=== PATIENT | male | born 1985 | race African-American/Black ===

== ENCOUNTER 2020-11-20 00:25 | Emergency (ER) | payer SELFPAY ==
[~2020-11-20] VITALS: Ht 182.9 cm; Wt 70.0 kg
[2020-11-20 01:14] LABS: MEAN CORPUSCULAR HEMOGLOBIN 28.2 pg (27.5-34.5); MEAN CORPUSCULAR HGB CONC 33.5 g/dL (33.2-36.2); MEAN PLATELET VOLUME 6.9 fL (7.4-10.4); PLATELET COUNT 424 x10^3/uL (130-400); RED CELL DISTRIBUTION WIDTH 14.7 % (9.4-14.8)
[2020-11-20 01:23] LABS: ALANINE AMINOTRANSFERASE 114 U/L (12-78); ALBUMIN 3.2 g/dL (3.4-5.0); ANION GAP 8 mmol/L (5-15); CALCIUM 8.4 mg/dL (8.5-10.1); CHLORIDE 106 mmol/L (98-107); CREATININE 0.79 mg/dL (0.7-1.3)
[2020-11-20 01:25] LABS: ALKALINE PHOSPHATASE 72 U/L (45-117); BILIRUBIN,TOTAL 0.2 mg/dL (0.2-1.0); SALICYLATE LEVEL < 1.7 mg/dL (2.8-20.0); TOTAL PROTEIN 7.1 g/dL (6.4-8.2)
[2020-11-20 01:41] LABS: MD YES
[2020-11-20 01:42] LABS: BAND#(MANUAL) 0.13 x10^3/uL; BANDS%(MANUAL) 2 % (0-7); EOS#(MANUAL) 0.13 x10^3/uL (0.0-0.4); EOS% (MANUAL) 2 % (1-7); LYMPH#(MANUAL) 3.19 x10^3/uL (1-3.4); LYMPHS% (MANUAL) 49 % (22-44); MONOS#(MANUAL) 0.52 x10^3/uL (0.3-2.7); MONOS% (MANUAL) 8 % (2-9); SEG#(MANUAL) 2.54 x10^3/uL (1.8-6.8); SEGS% (MANUAL) 39 % (42-75); SMUDGE CELLS 1+
[2020-11-20 01:43] LABS: ANISOCYTOSIS 1+
[2020-11-20 01:45] LABS: <PLATELET ESTIMATE> INCREASED; <PLT MORPHOLOGY> NORMAL PLT MORPH
--- NOTE | 2020-11-20 02:12 | NUR ---
REPORT GIVEN TO SAMUEL HAWKINS.
--- NOTE | 2020-11-20 02:22 | NUR ---
REPORT RECEIVED FROM DOROTA BAKER. PT CARE TRANSFERRED AT THIS TIME. PT NAD, RESTING ON GURNEY, ASSISTED TO RESTROOM, UA COLLECTED AND WALKED TO LAB AT THIS TIME. PT NAD, DENIES ADDITIONAL NEEDS AT THIS TIME. WCOMAR.
[2020-11-20 02:42] LABS: AMPHETAMINE SCREEN, URINE Negative (Negative); BARBITURATE SCREEN, URINE Negative (Negative); BENZODIAZEPINE SCREEN, URINE Positive (Negative); CANNABINOID SCREEN, URINE Negative (Negative); COCAINE SCREEN, URINE Negative (Negative); METHADONE SCREEN, URINE Negative (Negative); OPIATE SCREEN, URINE Negative (Negative)
[2020-11-20 03:17] VITALS: BP 129/87
--- NOTE | 2020-11-20 03:34 | NUR ---
PT RESTING ON GUMAN, NAD, APPEARS COMFORTABLE, NO CHANGE IN CONDITION, PT READY TO BE REASSESSED AT THIS TIME. PROVIDER TO REASSESS WHE AVAILABLE. VSS. BED IN LOWEST, CALL LIGHT ON LAP, WCTM.
--- NOTE | 2020-11-20 04:55 | NUR ---
PT NAD, NO CHANGE IN CONDITION, RESTING ON GURNEY, APPEARS COMFORTABLE, WCTM. WAITING FOR RECHECK
--- NOTE | 2020-11-20 06:04 | NUR ---
Patient/Caregiver given discharge instructions and they have confirmed that they understand the instructions. Patient ambulatory with steady gait.
== END 2020-11-20 06:05 | disposition home or self-care (01) ==
LOC: ED 05:23
DX: F10.129 Alcohol abuse with intoxication, unspecified (principal); Z72.9 Problem related to lifestyle, unspecified; Y90.0 Blood alcohol level of less than 20 mg/100 ml
CPT/HCPCS: 36415; 80053; 80299; 80307; 80320; 80329; 85025; 99283; G0480

== ENCOUNTER 2020-11-23 05:21 | Emergency (ER) | payer MEDICARE, MEDICAID ==
[~2020-11-23] VITALS: Ht 170.2 cm; Wt 60.0 kg
[2020-11-23 05:28] VITALS: BP 155/98
--- NOTE | 2020-11-23 05:30 | NUR ---
WHEN ASKED ABOUT ALLERGIES/ PAST MEDICAL HX STS "I DON'T KNOW"
--- NOTE | 2020-11-23 05:50 | NUR ---
PT AMBUALTED TO SHOWER WITHOUT ASSISTANCE. PROVIDED NEW PANTS AND UNDERWEAR. NO OTHER COMPLAINTS AT THIS TIME
== END 2020-11-23 06:58 | disposition home or self-care (01) ==
LOC: ED 06:33
DX: F10.10 Alcohol abuse, uncomplicated (principal); F15.10 Other stimulant abuse, uncomplicated; R19.7 Diarrhea, unspecified; R41.82 Altered mental status, unspecified; Y90.0 Blood alcohol level of less than 20 mg/100 ml
CPT/HCPCS: 99283